=== PATIENT | female | born 1950 | race Caucasian/White ===

== ENCOUNTER 2018-04-29 08:33 | Day surgery (SDC) | payer MEDICARE, BC ==
[~2018-04-29 08:33] MED LIST: LIDOCAINE HCL 1% MPF 30 SOL ONE; PROPOFOL 500 MG/50 ML EMU IV ONE
[2018-04-29 10:48] VITALS: BP 119/69; PULSE 55; RESP 20; TEMP 97.2; O2SAT 99
== END 2018-04-29 11:05 | disposition home or self-care (01) | DRG 951 ==
LOC: SURG 08:33
PROVIDERS: ATTEND Surgery
DX: Z12.11 Encounter for screening for malignant neoplasm of colon (principal)
CPT/HCPCS: J2001; J2704

== ENCOUNTER 2018-10-26 12:46 | Outpatient (CLI) | payer BC ==
[2018-04-29 10:48] VITALS: O2SAT 99
== END 2018-10-26 12:47 | disposition home or self-care (01) | DRG 554 ==
LOC: CONVCARE 12:46
PROVIDERS: ATTEND Orthopaedic Surgery
DX: M17.0 Bilateral primary osteoarthritis of knee (principal)
CPT/HCPCS: 73562

== ENCOUNTER 2018-12-28 06:28 | Inpatient (IN) | payer BC ==
[2018-12-28] MEDS ORDERED: CELECOXIB 100 MG CAP PO ONE (07:00)
[2018-12-28] MEDS ORDERED: LACTATED RINGERS 1,000 ML IV ONE (07:00)
[2018-12-28] MEDS ORDERED: SCOPOLAMINE 1.5MG PATCH TD SCH (07:30)
[2018-12-28] MEDS ORDERED: LACTATED RINGERS 1,000 ML IV SCH (08:00)
[2018-12-28] MEDS ORDERED: SODIUM CHLORIDE 20 ML 20 ML ONE (08:08)
[2018-12-28] MEDS ORDERED: FENTANYL 100MCG/2ML SOL ONE (08:59)
[2018-12-28] MEDS ORDERED: PROPOFOL 500 MG/50 ML EMU IV ONE ×2 (08:59→11:05)
[2018-12-28] MEDS ORDERED: MORPHINE SULFATE 0.5 MG/ML SOL ONE (08:59)
[2018-12-28] MEDS ORDERED: ONDANSETRON HCL 4 MG/2 ML SOL ONE (08:59)
[2018-12-28] MEDS ORDERED: DEXAMETHASONE 20 MG/5 ML (4 MG/ML SOL) ONE (08:59)
[2018-12-28] MEDS ORDERED: MIDAZOLAM 2 MG/2 ML SOL ONE (09:00)
[2018-12-28] MEDS: TRANEXAMIC ACID 100 MG/ML SOL ONE ×2 (10:23→12:37)
[2018-12-28] MEDS ORDERED: EPHEDRINE SULFATE 50 MG/ML SOL ONE (10:36)
[2018-12-28] MEDS ORDERED: CEFAZOLIN SODIUM 1 GM PDS ONE ×2 (10:39→18:48)
[2018-12-28] MEDS: BUPIVACAINE HCL 0.25% MPF 30 ML SOL INFIL ONE ×4 (10:55→12:40)
[2018-12-28] MEDS: BUPIVACAINE LIPOSOME 20 ML SUS ONE ×4 (10:55→12:40)
[2018-12-28] MEDS ORDERED: PROPOFOL 10 MG/ML 200 MG/20 ML EMU IV ONE ×2 (12:09→12:37)
[2018-12-28] MEDS ORDERED: DIAZEPAM 5 MG TAB PO PRN (15:50)
[2018-12-28] MEDS ORDERED: SODIUM CHLORIDE 0.9% 500 ML 500 ML IV PRN (15:50)
[2018-12-28] MEDS ORDERED: DEXTROSE/SALINE 0.45/KCL 20MEQ 1,000 ML/1,000 ML SOL IV SCH (16:00)
[2018-12-28] MEDS: SODIUM CHLORIDE 0.9% FLUSH 10 ML SOL IV SCH (17:10)
[2018-12-28] MEDS: ONDANSETRON 4 MG ODT BU PRN (18:08)
[2018-12-28] MEDS ORDERED: SODIUM CHLORIDE 0.9% 100 ML 100 ML IV ONE (18:48)
[2018-12-28] MEDS: CEFAZOLIN SODIUM 1 GM PDS 2 GM in SODIUM CHLORIDE 0.9% 100 ML 100 ML IV SCH (18:57)
[2018-12-28] MEDS: SENNOSIDES A AND B 8.6 MG TAB PO SCH (21:06)
[2018-12-28] MEDS: GABAPENTIN 300 MG CAP PO SCH (21:06)
[2018-12-28] MEDS: ACETAMINOPHEN 325 MG PO PRN (21:40)
[2018-12-28] MEDS ORDERED: CEFAZOLIN (PREMIX) 1 GM 1 GM/50 ML SOL IV SCH (23:52)
[2018-12-29] MEDS ORDERED: SODIUM CHLORIDE 0.9% 100 ML 100 ML IV ONE (01:52)
[2018-12-29] MEDS ORDERED: CEFAZOLIN SODIUM 1 GM PDS ONE (01:52)
[2018-12-29] MEDS: SODIUM CHLORIDE 0.9% FLUSH 10 ML SOL IV SCH ×3 (02:05→19:03)
[2018-12-29] MEDS: CEFAZOLIN SODIUM 1 GM PDS 2 GM in SODIUM CHLORIDE 0.9% 100 ML 100 ML IV SCH (02:05)
[2018-12-29] MEDS: APAP/OXYCODONE 1 EACH TABLET PO PRN ×4 (04:39→20:04)
[2018-12-29 07:29] LABS: HEMOGLOBIN 11.9 gm/dl (12.0-15.5); MEAN CORPUSCULAR HEMOGLOBIN 29.2 pg (27.0-32.0); MEAN CORPUSCULAR HGB CONC 32.3 gm/dl (32.0-36.0)
[2018-12-29] MEDS: FERROUS GLUCONATE 324 MG TABLET PO SCH (08:51)
[2018-12-29] MEDS: GABAPENTIN 300 MG CAP PO SCH ×2 (08:51→20:03)
[2018-12-29] MEDS: RIVAROXABAN 10 MG TAB PO SCH (08:51)
[2018-12-29] MEDS: ONDANSETRON 4 MG ODT BU PRN (10:06)
[2018-12-29] MEDS: SENNOSIDES A AND B 8.6 MG TAB PO SCH (20:03)
[2018-12-30] MEDS: SODIUM CHLORIDE 0.9% FLUSH 10 ML SOL IV SCH ×5 (01:27→23:29)
[2018-12-30] MEDS: APAP/OXYCODONE 1 EACH TABLET PO PRN ×5 (01:27→20:41)
[2018-12-30 07:15] LABS: HEMOGLOBIN 11.9 gm/dl (12.0-15.5); MEAN CORPUSCULAR HEMOGLOBIN 28.7 pg (27.0-32.0); MEAN CORPUSCULAR HGB CONC 32.1 gm/dl (32.0-36.0)
[2018-12-30] MEDS: FERROUS GLUCONATE 324 MG TABLET PO SCH (08:49)
[2018-12-30] MEDS: GABAPENTIN 300 MG CAP PO SCH ×2 (08:49→20:42)
[2018-12-30] MEDS: RIVAROXABAN 10 MG TAB PO SCH (08:49)
[2018-12-30 20:23] VITALS: RESP 16; O2SAT 97
[2018-12-30] MEDS: SENNOSIDES A AND B 8.6 MG TAB PO SCH (20:42)
[2018-12-31] MEDS: APAP/OXYCODONE 1 EACH TABLET PO PRN ×3 (00:40→08:45)
[2018-12-31 07:18] LABS: HEMOGLOBIN 11.8 gm/dl (12.0-15.5); MEAN CORPUSCULAR HEMOGLOBIN 29.2 pg (27.0-32.0); MEAN CORPUSCULAR HGB CONC 32.7 gm/dl (32.0-36.0)
[2018-12-31 07:40] VITALS: BP 125/76; PULSE 77; TEMP 98.2
[2018-12-31] MEDS: ACETAMINOPHEN 325 MG PO PRN (07:40)
[2018-12-31] MEDS: SODIUM CHLORIDE 0.9% FLUSH 10 ML SOL IV SCH (08:51)
[2018-12-31] MEDS: RIVAROXABAN 10 MG TAB PO SCH (08:53)
[2018-12-31] MEDS: FERROUS GLUCONATE 324 MG TABLET PO SCH (08:53)
[2018-12-31] MEDS: GABAPENTIN 300 MG CAP PO SCH (08:53)
[2018-12-31] MEDS ORDERED: BISACODYL 10 MG SUP PR PRN (09:46)
== END 2018-12-31 11:53 | disposition swing bed (61) | DRG 462 ==
LOC: ACUTE CARE 06:28
PROVIDERS: ADMIT Orthopaedic Surgery; ATTEND Orthopaedic Surgery
PROC: 0SRC0J9 Replacement of Right Knee Joint with Synthetic Substitute, Cemented, Open Approach (ICD-10-PCS; 2018-12-28)
PROC: 0SRD0J9 Replacement of Left Knee Joint with Synthetic Substitute, Cemented, Open Approach (ICD-10-PCS; principal; 2018-12-28 09:00)
PROC: F02Z0ZZ Bathing/Showering Assessment (ICD-10-PCS; 2018-12-29)
PROC: F02Z3ZZ Grooming/Personal Hygiene Assessment (ICD-10-PCS; 2018-12-29)
DX: M17.0 Bilateral primary osteoarthritis of knee (principal); Z96.653 Presence of artificial knee joint, bilateral
CPT/HCPCS: 36415; 73560; 85027; 85049; 94150; 99070; J0690; J1100; J2250; J2274; J2405; J3010; A6232; A9270-GY; J2704; J3490; Q3014

== ENCOUNTER 2018-12-31 09:58 | Inpatient (IN) | payer BC ==
[2018-12-31] MEDS ORDERED: ONDANSETRON 4 MG ODT BU PRN (13:20)
[2018-12-31] MEDS ORDERED: BISACODYL 10 MG SUP PR PRN (13:20)
[2018-12-31] MEDS: APAP/OXYCODONE 1 EACH TABLET PO PRN ×3 (13:46→20:05)
[2018-12-31] MEDS: SENNOSIDES A AND B 8.6 MG TAB PO SCH (20:34)
[2018-12-31] MEDS: CHOLECALCIFEROL 1,000 IU TAB PO SCH (20:34)
[2018-12-31] MEDS: CALCIUM CARBONATE 500 MG TAB PO SCH (20:34)
[2018-12-31] MEDS: GABAPENTIN 300 MG CAP PO SCH (20:35)
[2018-12-31] MEDS: DIAZEPAM 5 MG TAB PO PRN (20:35)
[2019-01-01] MEDS: APAP/OXYCODONE 1 EACH TABLET PO PRN ×6 (00:05→19:35)
[2019-01-01] MEDS: RIVAROXABAN 10 MG TAB PO SCH (09:21)
[2019-01-01] MEDS: CHOLECALCIFEROL 1,000 IU TAB PO SCH ×2 (09:21→20:44)
[2019-01-01] MEDS: CALCIUM CARBONATE 500 MG TAB PO SCH ×2 (09:21→20:44)
[2019-01-01] MEDS: GABAPENTIN 300 MG CAP PO SCH ×2 (09:21→20:44)
[2019-01-01] MEDS: FERROUS GLUCONATE 324 MG TABLET PO SCH (09:21)
[2019-01-01] MEDS: [UNRECOGNIZED DRUG - OTHER] PO SCH (09:21)
[2019-01-01] MEDS: ASPIRIN 81 MG CHEWABLE CTB PO SCH (09:23)
[2019-01-01] MEDS: SENNOSIDES A AND B 8.6 MG TAB PO SCH (20:44)
[2019-01-01] MEDS: DIAZEPAM 5 MG TAB PO PRN (20:44)
[2019-01-02] MEDS: APAP/OXYCODONE 1 EACH TABLET PO PRN ×4 (01:48→20:20)
[2019-01-02] MEDS: FERROUS GLUCONATE 324 MG TABLET PO SCH (09:45)
[2019-01-02] MEDS: GABAPENTIN 300 MG CAP PO SCH ×2 (09:45→20:18)
[2019-01-02] MEDS: CALCIUM CARBONATE 500 MG TAB PO SCH ×2 (09:45→20:19)
[2019-01-02] MEDS: RIVAROXABAN 10 MG TAB PO SCH (09:46)
[2019-01-02] MEDS: [UNRECOGNIZED DRUG - OTHER] PO SCH (09:46)
[2019-01-02] MEDS: CHOLECALCIFEROL 1,000 IU TAB PO SCH ×2 (09:46→20:20)
[2019-01-02] MEDS: DIAZEPAM 5 MG TAB PO PRN ×2 (09:48→20:20)
[2019-01-02] MEDS: ASPIRIN 81 MG CHEWABLE CTB PO SCH (09:51)
[2019-01-02] MEDS: SENNOSIDES A AND B 8.6 MG TAB PO SCH (20:19)
[2019-01-03] MEDS: APAP/OXYCODONE 1 EACH TABLET PO PRN ×5 (00:34→23:56)
[2019-01-03] MEDS: DIAZEPAM 5 MG TAB PO PRN ×3 (03:33→22:34)
[2019-01-03] MEDS: FERROUS GLUCONATE 324 MG TABLET PO SCH (09:13)
[2019-01-03] MEDS: RIVAROXABAN 10 MG TAB PO SCH (09:13)
[2019-01-03] MEDS: CALCIUM CARBONATE 500 MG TAB PO SCH ×2 (09:13→20:03)
[2019-01-03] MEDS: CHOLECALCIFEROL 1,000 IU TAB PO SCH ×2 (09:13→20:03)
[2019-01-03] MEDS: ASPIRIN 81 MG CHEWABLE CTB PO SCH (09:13)
[2019-01-03] MEDS: [UNRECOGNIZED DRUG - OTHER] PO SCH (09:13)
[2019-01-03] MEDS: GABAPENTIN 300 MG CAP PO SCH ×2 (09:13→20:03)
[2019-01-03] MEDS: SENNOSIDES A AND B 8.6 MG TAB PO SCH (20:03)
[2019-01-04] MEDS: APAP/OXYCODONE 1 EACH TABLET PO PRN ×3 (07:00→19:16)
[2019-01-04] MEDS: GABAPENTIN 300 MG CAP PO SCH ×2 (08:46→21:24)
[2019-01-04] MEDS: CALCIUM CARBONATE 500 MG TAB PO SCH ×2 (08:46→21:23)
[2019-01-04] MEDS: RIVAROXABAN 10 MG TAB PO SCH (08:46)
[2019-01-04] MEDS: FERROUS GLUCONATE 324 MG TABLET PO SCH (08:46)
[2019-01-04] MEDS: ASPIRIN 81 MG CHEWABLE CTB PO SCH (08:46)
[2019-01-04] MEDS: CHOLECALCIFEROL 1,000 IU TAB PO SCH ×3 (08:46→21:24)
[2019-01-04] MEDS: [UNRECOGNIZED DRUG - OTHER] PO SCH ×2 (08:46→12:09)
[2019-01-04] MEDS: DIAZEPAM 5 MG TAB PO PRN (12:10)
[2019-01-04] MEDS: SENNOSIDES A AND B 8.6 MG TAB PO SCH (21:23)
[2019-01-05] MEDS: APAP/OXYCODONE 1 EACH TABLET PO PRN ×4 (01:07→19:35)
[2019-01-05] MEDS: FERROUS GLUCONATE 324 MG TABLET PO SCH (09:55)
[2019-01-05] MEDS: GABAPENTIN 300 MG CAP PO SCH (09:55)
[2019-01-05] MEDS: [UNRECOGNIZED DRUG - OTHER] PO SCH (09:55)
[2019-01-05] MEDS: RIVAROXABAN 10 MG TAB PO SCH (09:55)
[2019-01-05] MEDS: CALCIUM CARBONATE 500 MG TAB PO SCH ×2 (09:55→20:11)
[2019-01-05] MEDS: ASPIRIN 81 MG CHEWABLE CTB PO SCH (09:55)
[2019-01-05] MEDS: CHOLECALCIFEROL 1,000 IU TAB PO SCH ×2 (09:56→20:11)
[2019-01-05] MEDS: CETIRIZINE HYDROCHLORIDE 10 MG TAB PO SCH (13:27)
[2019-01-05] MEDS: DIAZEPAM 5 MG TAB PO PRN ×2 (17:25→23:22)
[2019-01-05] MEDS: SENNOSIDES A AND B 8.6 MG TAB PO SCH (20:11)
[2019-01-06] MEDS: APAP/OXYCODONE 1 EACH TABLET PO PRN ×3 (02:30→11:04)
[2019-01-06] MEDS: [UNRECOGNIZED DRUG - OTHER] PO SCH (09:52)
[2019-01-06] MEDS: ASPIRIN 81 MG CHEWABLE CTB PO SCH (09:52)
[2019-01-06] MEDS: CHOLECALCIFEROL 1,000 IU TAB PO SCH ×2 (09:53→21:27)
[2019-01-06] MEDS: FERROUS GLUCONATE 324 MG TABLET PO SCH (09:53)
[2019-01-06] MEDS: CALCIUM CARBONATE 500 MG TAB PO SCH ×2 (09:53→21:26)
[2019-01-06] MEDS: RIVAROXABAN 10 MG TAB PO SCH (09:53)
[2019-01-06] MEDS: CETIRIZINE HYDROCHLORIDE 10 MG TAB PO SCH (09:58)
[2019-01-06] MEDS: ACETAMINOPHEN 325 MG PO PRN ×2 (13:32→21:25)
[2019-01-06] MEDS: DIAZEPAM 5 MG TAB PO PRN (13:33)
[2019-01-06] MEDS: TRAMADOL HYDROCHLORIDE 50 MG TAB PO PRN ×2 (16:47→21:27)
[2019-01-06] MEDS: SENNOSIDES A AND B 8.6 MG TAB PO SCH (21:26)
[2019-01-07] MEDS: ACETAMINOPHEN 325 MG PO PRN ×4 (03:40→21:27)
[2019-01-07] MEDS: TRAMADOL HYDROCHLORIDE 50 MG TAB PO PRN ×4 (03:40→21:32)
[2019-01-07] MEDS: CETIRIZINE HYDROCHLORIDE 10 MG TAB PO SCH (09:44)
[2019-01-07] MEDS: FERROUS GLUCONATE 324 MG TABLET PO SCH (09:44)
[2019-01-07] MEDS: ASPIRIN 81 MG CHEWABLE CTB PO SCH (09:44)
[2019-01-07] MEDS: CALCIUM CARBONATE 500 MG TAB PO SCH ×2 (09:44→21:28)
[2019-01-07] MEDS: RIVAROXABAN 10 MG TAB PO SCH (09:44)
[2019-01-07] MEDS: DIAZEPAM 5 MG TAB PO PRN ×2 (11:22→22:22)
[2019-01-07] MEDS: [UNRECOGNIZED DRUG - OTHER] PO SCH (11:23)
[2019-01-07] MEDS: CHOLECALCIFEROL 1,000 IU TAB PO SCH ×2 (11:23→21:27)
[2019-01-07] MEDS: SENNOSIDES A AND B 8.6 MG TAB PO SCH (21:28)
[2019-01-08] MEDS: ACETAMINOPHEN 325 MG PO PRN ×5 (01:29→22:03)
[2019-01-08] MEDS: TRAMADOL HYDROCHLORIDE 50 MG TAB PO PRN ×6 (01:30→22:03)
[2019-01-08] MEDS: [UNRECOGNIZED DRUG - OTHER] PO SCH (09:53)
[2019-01-08] MEDS: CHOLECALCIFEROL 1,000 IU TAB PO SCH ×2 (09:53→20:54)
[2019-01-08] MEDS: FERROUS GLUCONATE 324 MG TABLET PO SCH (09:54)
[2019-01-08] MEDS: CETIRIZINE HYDROCHLORIDE 10 MG TAB PO SCH (09:54)
[2019-01-08] MEDS: ASPIRIN 81 MG CHEWABLE CTB PO SCH (09:54)
[2019-01-08] MEDS: DIAZEPAM 5 MG TAB PO PRN ×3 (09:54→20:54)
[2019-01-08] MEDS: CALCIUM CARBONATE 500 MG TAB PO SCH ×2 (09:54→20:54)
[2019-01-08] MEDS: RIVAROXABAN 10 MG TAB PO SCH (09:54)
[2019-01-08] MEDS: SENNOSIDES A AND B 8.6 MG TAB PO SCH (20:54)
[2019-01-08 21:22] VITALS: RESP 16
[2019-01-09] MEDS: ACETAMINOPHEN 325 MG PO PRN ×2 (04:22→08:33)
[2019-01-09] MEDS: TRAMADOL HYDROCHLORIDE 50 MG TAB PO PRN ×2 (04:22→08:34)
[2019-01-09] MEDS: DIAZEPAM 5 MG TAB PO PRN (08:33)
[2019-01-09] MEDS: CALCIUM CARBONATE 500 MG TAB PO SCH (08:34)
[2019-01-09] MEDS: CHOLECALCIFEROL 1,000 IU TAB PO SCH (08:36)
[2019-01-09] MEDS: ASPIRIN 81 MG CHEWABLE CTB PO SCH (08:36)
[2019-01-09] MEDS: FERROUS GLUCONATE 324 MG TABLET PO SCH (08:37)
[2019-01-09] MEDS: RIVAROXABAN 10 MG TAB PO SCH (08:37)
[2019-01-09] MEDS: [UNRECOGNIZED DRUG - OTHER] PO SCH (08:37)
[2019-01-09] MEDS: CETIRIZINE HYDROCHLORIDE 10 MG TAB PO SCH (08:37)
[2019-01-09 09:58] VITALS: BP 162/84; PULSE 77; TEMP 97.9; O2SAT 96
== END 2019-01-09 12:00 | disposition home health service (06) | DRG 554 ==
LOC: ACUTE CARE 11:58
PROVIDERS: ADMIT Family Medicine; ATTEND Family Medicine
PROC: F01K5ZZ Range of Motion and Joint Integrity Assessment of Musculoskeletal System - Upper Back / Upper Extremity (ICD-10-PCS; principal; 2018-12-31)
PROC: F02Z0ZZ Bathing/Showering Assessment (ICD-10-PCS; 2018-12-31)
DX: M17.0 Bilateral primary osteoarthritis of knee (principal); Z96.653 Presence of artificial knee joint, bilateral
CPT/HCPCS: A6232; A9270-GY

== ENCOUNTER 2019-01-25 10:36 | Outpatient (CLI) | payer BC ==
[2019-01-09 09:58] VITALS: O2SAT 96
== END 2019-01-25 10:37 | disposition home or self-care (01) | DRG 556 ==
LOC: CONVCARE 10:36
PROVIDERS: ATTEND Orthopaedic Surgery
DX: M25.561 Pain in right knee (principal); Z96.653 Presence of artificial knee joint, bilateral
CPT/HCPCS: 73562